=== PATIENT | male | born 2000 | race African-American/Black ===

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

== ENCOUNTER 2019-04-12 15:29 | Emergency (ER) | payer MEDICAID ==
[~2019-04-12] VITALS: Ht 167.6 cm; Wt 61.0 kg
[2019-04-12 19:49] VITALS: BP 106/73
== END 2019-04-12 21:00 | disposition home or self-care (01) ==
LOC: ER 16:44
DX: R07.9 Chest pain, unspecified (principal); R13.19 Other dysphagia; F12.10 Cannabis abuse, uncomplicated
CPT/HCPCS: 71045; 99283

== ENCOUNTER 2025-08-13 19:38 | Emergency (ER) | payer MEDICAID ==
[~2025-08-13] VITALS: Ht 167.6 cm; Wt 69.0 kg
[2025-08-13 20:05] VITALS: TEMP 36.9; O2SAT 98
[2025-08-13] MEDS ORDERED: BO1 TP (21:38)
[2025-08-13 21:52] VITALS: BP 141/98; PULSE 71; RESP 12; O2SAT 97
[2025-08-13] MEDS: TETANUS, DIPHTHERIA, PERTUSSIS VAC/PF 0.5ML (>10YR OLD) IM ONE (21:54)
== END 2025-08-13 21:58 | disposition home or self-care (01) ==
LOC: ER 19:38
DX: S01.112A Laceration without foreign body of left eyelid and periocular area, initial encounter (principal); F12.90 Cannabis use, unspecified, uncomplicated; W22.8XXA Striking against or struck by other objects, initial encounter; Y93.89 Activity, other specified; Y92.89 Other specified places as the place of occurrence of the external cause; Y99.8 Other external cause status
CPT/HCPCS: 90715; 90471; 99283; Z7610